=== PATIENT | female | born 1965 | race Caucasian/White ===

== ENCOUNTER 2023-08-13 13:15 | Outpatient (RCR) | payer OTHER, SELFPAY ==
[2023-05-21 12:29] VITALS: BP_SYST 65
--- NOTE | 2023-05-21 13:40 | PTOPEVAL1 ---
Assessment and note entered by Luis Coleman, PT Evaluation Information Assessment Status Evaluation Diagnosis Right Shoulder Pain Onset 04/09/23 Subjective Information Reports that she has been sore but still using her arm. Did not wear her sling today and unsure if she needs to or not because she missed her last appointment with her MD. 06/01/23 she will return to MD. She is R handed. She has been concerned wih her functional capability. Reported Pain Level Pain Score 7: Self Report Assessment PT Clinical Summary Ms. Le presents with typical signs and symptoms following arthroscopic surgery. She is showing significant limitation in shoulder motion and postural positioning. I am unsure of her compliance with wearing the sling and shoulder mobility as she presented to therapy today without. She will benefit from skilled therapy following post operative protocol to restore shoulder motion and strength as protocol allows. Plan of Care Interventions Electrical Stimulation,Hot Pack/Cold Pack,Manual Therapy,Therapeutic Activities,Therapeutic Exercise PT Services Indicated Yes Treatment Frequency and 3x/week for 12 visits Duration These treatments will address the objective and functional deficits as defined above. The patient will be advanced safely and appropriately in order for the patient to progress towards his/her prior level of function. Additional exercises will be introduced and as well as a comprehensive home exercise program upon discharge, if needed, ?to ensure carryover of functional gains achieved in the clinic. This treatment plan has been reviewed and agreement upon by the patient.
--- NOTE | 2023-05-21 13:42 | OPREHPOC ---
Outpatient Therapy Plan of Care This is a Multidisciplinary Plan of Care that may contain components documented by all disciplines (PT, OT, and ST.) PT Problem 1 PT Problem #1 Knowledge Deficit PT Goal 1 Goal Patient will demonstrate independence with HEP within protocol expectations Target Visit 12 PT Problem 2 PT Problem #2 Pain PT Goal 1 Goal Report no pain in R shoulder greater than 2/10 at rest with arm out of sling Target Visit 12 PT Problem 3 PT Problem #3 Impaired Range of Motion PT Goal 1 Goal R shoulder flexion to 170 degrees actively for functional reach Target Visit 12 PT Goal 2 Goal Improve R shoulder ER to 80 degrees to improve self care and bathing ability Target Visit 12 PT Problem 4 PT Problem #4 Impaired Strength PT Goal 1 Goal Progress to strengthening activity per protocol for functional jewish and stability improvement Target Visit 12
--- NOTE | 2023-06-18 15:32 | PCPTNOTE ---
Patient cancelled secondary to family emergency. Rescheduled appointment for next week.
--- NOTE | 2023-06-25 08:32 | PCPTNOTE ---
Pt. called the clinic reporting she was ill and would need to cancel her appointment. She rescheduled from next week.
--- NOTE | 2023-07-02 09:51 | PTOPEVAL1 ---
Assessment and note entered by Michael Ramirez Evaluation Information Assessment Status Progress Diagnosis right shoulder pain,s/p right shoulder arthroscopy Onset 04/09/23 Subjective Information Pt. reports she is improving. She states that she is noticing improved mobility. She reports that she still has pain and most difficulty with reaching behind her back. She reports she would benefit from continued therapy to improve her strength. Reported Pain Level Pain Score 3: Self Report Assessment PT Clinical Summary Pt. pt. has attended a total of 12 treatment sessions. In this time she has demonstrated progress in regards to strength and mobility. Despite her progress ROM and strength deficits still remain. She inititated the strengthening phase of her rehab protocol on this date. Continued skilled PT is indicated to further improve strength and mobliity at the right shoulder to allow the pt. to return to all normal work related activities without limitation. Plan of Care Interventions Electrical Stimulation,Hot Pack/Cold Pack,Manual Therapy,Neuro Re-education,Patient/Caregiver Educati,Therapeutic Activities,Therapeutic Exercise PT Services Indicated Yes Treatment Frequency and 2x/week x 8 visits Duration These treatments will address the objective and functional deficits as defined above. The patient will be advanced safely and appropriately in order for the patient to progress towards his/her prior level of function. Additional exercises will be introduced and as well as a comprehensive home exercise program upon discharge, if needed, ?to ensure carryover of functional gains achieved in the clinic. This treatment plan has been reviewed and agreement upon by the patient.
--- NOTE | 2023-07-24 09:03 | PCPTNOTE ---
Patient was a No Show/No Call for today's visit.
--- NOTE | 2023-07-28 11:27 | PCPTNOTE ---
Pt. canceled 07/28/23 appointment as she is sick.
--- NOTE | 2023-07-30 10:27 | PTOPEVAL1 ---
Assessment and note entered by Michael Ramirez Evaluation Information Assessment Status Progress Diagnosis right shoulder pain, s/p right shoulder arthroscopy Onset 04/09/23 Subjective Information Pt. reports that she is feelling ok. She states that she continues to improve. Pt. reports that her pain has decreased and mobility has improved over the past month. She reports she can use the right hand to put her hair up and to put her bra on with the right hand. She states that despite her progress, she continues to notice weakness. She reports that she will return to the doctor on 08/11/23. Reported Pain Level Pain Score 2: Self Report Assessment PT Clinical Summary Pt. demonstrates progress in regards to strength and ROM. Continue to note weakness in all planes and remaining stiffness into IR despite her progress. Continued skilled PT is indicated to continue to improve strength and mobility for pt. to be able to return to all work related duties. Plan of Care Interventions Electrical Stimulation,Hot Pack/Cold Pack,Manual Therapy,Neuro Re-education,Patient/Caregiver Educati,Therapeutic Activities,Therapeutic Exercise PT Services Indicated Yes Treatment Frequency and 2x/week x 6 visits Duration These treatments will address the objective and functional deficits as defined above. The patient will be advanced safely and appropriately in order for the patient to progress towards his/her prior level of function. Additional exercises will be introduced and as well as a comprehensive home exercise program upon discharge, if needed, ?to ensure carryover of functional gains achieved in the clinic. This treatment plan has been reviewed and agreement upon by the patient.
== END 2023-08-19 23:59 | disposition home or self-care (01) ==
LOC: ANHPT 13:15
PROVIDERS: PCP Emergency Medicine
DX: Z48.89 Encounter for other specified surgical aftercare (principal); S43.431D Superior glenoid labrum lesion of right shoulder, subsequent encounter; S46.011D Strain of muscle(s) and tendon(s) of the rotator cuff of right shoulder, subsequent encounter; Z98.890 Other specified postprocedural states
CPT/HCPCS: 97110; 97112; 97140; 97161; 97530; 99199

== ENCOUNTER 2023-08-27 09:30 | Outpatient (RCR) | payer OTHER, SELFPAY ==
[2023-08-20 00:04] VITALS: BP_SYST 65
--- NOTE | 2023-08-27 10:20 | PTOPEVAL1 ---
Assessment and note entered by Michael Ramirez Progress Note Information Assessment Status Progress Diagnosis right shoulder pain, s/p right shoulder arthroscopy Onset 04/09/23 Subjective Information Pt. reports she has not yet returned to work. She reports she is slightly confused in regards to the procedure for returning to work. She states that her doctor still has her on a 1# restriction. She reports that her pain levels remain at a consistent 3/10. Pt. reports she has no current restriction with her basic daily activities and is doing all light activities at home. She has avoided any heavy lifting and would like to be able to return to being able to lift heavy objects . Reported Pain Level Pain Score 3: Self Report Pain Score 2: Self Report Assessment PT Clinical Summary Mrs. Le has attended a total of 21 treatment sessions since the initial evaluation. In this time she has demonstrated progress in both strength and mobility at the right shoulder. She presents with symmetry in regards to right and left shoulder flexion and ER active ROM. Continue to note restriction in regards to right shoulder IR active ROM, however has improved significantly since last evaluation. Pt. demonstrates improvements in strength, however deficits are still noted in all planes of right shoulder movement, and most notable weakness remains with right shoulder ER. Pt. will return to the doctor in approximately 1 1/2 weeks. At this time pt. treatment will be held until further instruction is given from the M.D. Recommend continued skilled PT to improve proximal u.e. strength on the right.. Pt. appears appropriate to return to light duty activities at this time. Plan of Care Interventions Manual Therapy,Patient/Caregiver Educati, Therapeutic Activities,Therapeutic Exercise PT Services Indicated Yes Treatment Frequency and We will await further instruction from the doctor Duration regarding continued PT. These treatments will address the objective and functional deficits as defined above. The patient will be advanced safely and appropriately in order for the patient to progress towards his/her prior level of function. Additional exercises will be introduced and as well as a comprehensive home exercise program upon discharge, if needed, ?to ensure carryover of functional gains achieved in the clinic. This treatment plan has been reviewed a
--- NOTE | 2023-10-05 09:42 | PCPTNOTE ---
Patient was a No Show for today's Re-Evaluation.
--- NOTE | 2023-11-04 16:24 | PTOPDC ---
Assessment and note entered by Luis Coleman, PT Evaluation Information Assessment Status Discharge - Pt Not Present Diagnosis right shoulder pain, s/p right shoulder arthroscopy Onset 04/09/23 Subjective Information Pt. reports she has not yet returned to work. She reports she is slightly confused in regards to the procedure for returning to work. She states that her doctor still has her on a 1# restriction. She reports that her pain levels remain at a consistent 3/10. Pt. reports she has no current restriction with her basic daily activities and is doing all light activities at home. She has avoided any heavy lifting and would like to be able to return to being able to lift heavy objects . Assessment PT Clinical Summary Patient has not returned for therapy since . Patient will be discharged at this time to [facility] . Please refer to last treatment note for discharge status. Plan of Care PT Services Indicated Discharge to [facility]
== END 2023-11-05 09:12 | disposition home or self-care (01) ==
LOC: ANHPT 09:30
PROVIDERS: PCP Emergency Medicine
DX: Z48.89 Encounter for other specified surgical aftercare (principal); S43.431D Superior glenoid labrum lesion of right shoulder, subsequent encounter; S46.011D Strain of muscle(s) and tendon(s) of the rotator cuff of right shoulder, subsequent encounter; Z98.890 Other specified postprocedural states
CPT/HCPCS: 97110; 97112; 97140; 99199